=== PATIENT | male | born 1995 | race Caucasian/White ===

== ENCOUNTER 2017-06-22 18:35 | Emergency (ER) | payer OTHER ==
[2017-06-22] MEDS ORDERED: ACETAMINOPHEN 325 MG TABLET PO ONE (20:55)
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
[2017-06-22 22:08] VITALS: BP 130/86
== END 2017-06-22 22:07 | disposition home or self-care (01) ==
LOC: ER 18:35
DX: S40.021A Contusion of right upper arm, initial encounter (principal); S80.01XA Contusion of right knee, initial encounter; M89.8X2 Other specified disorders of bone, upper arm; M25.561 Pain in right knee; M25.521 Pain in right elbow; V49.50XA Passenger injured in collision with unspecified motor vehicles in traffic accident, initial encounter; F17.210 Nicotine dependence, cigarettes, uncomplicated; Z71.6 Tobacco abuse counseling; Z87.81 Personal history of (healed) traumatic fracture
CPT/HCPCS: 99284

== ENCOUNTER 2018-01-14 18:29 | Emergency (ER) | payer SELFPAY ==
--- NOTE | 2018-01-14 18:54 | ER Document Report ---
ED Skin Rash/Insect Bite/Abscs - General Chief Complaint: Abscess Stated Complaint: POSSIBLE ABSCESS Time Seen by Provider: 01/14/18 18:48 TRAVEL OUTSIDE OF THE [place] IN LAST 30 DAYS: No - Related Data Allergies/Adverse Reactions: No Known Allergies Allergy (Verified 01/14/18 18:38) Past Medical History - Social History Family History: Arthritis, CVA, Hyperlipidemia, Hypertension, Thyroid Disfunction. denies: CAD, COPD, DM, Malignancy Renal/ Medical History: Denies: Hx Peritoneal Dialysis Musculoskeltal Medical History: Reports Hx Musculoskeletal Trauma Traumatic Medical History: Reports: Hx Fractures - Right knee Physical Exam - Vital signs Vitals: Temp Pulse BP Pulse Ox 100.3 F 111 H 119/70 97 01/14/18 18:46 01/14/18 18:46 01/14/18 18:46 01/14/18 18:46 Course - Vital Signs Vital signs: Temp Pulse Resp BP Pulse Ox 100.3 F 111 H 119/70 97 01/14/18 18:46 01/14/18 18:46 01/14/18 18:46 01/14/18 18:46
--- NOTE | 2018-01-14 19:10 | ER Document Report ---
ED Medical Screen (RME) - General Chief Complaint: Abscess Stated Complaint: POSSIBLE ABSCESS Time Seen by Provider: 01/14/18 18:48 Mode of Arrival: Ambulatory Information source: Patient Notes: 22-year-old male presents to ED for pain in my tailbone. He states there was a cyst or pimple on the tailbone that popped today. "He has a very large pilonidal cyst. I have consulted Dr. Russ who recommended call the surgeon to have him assess the area. When I called Dr. Orantes he stated that he needs CBC and chemistry before he comes and sees the patient to please call him with the results. CBC chemistry blood cultures and saline lock have been ordered. I have greeted and performed a rapid initial assessment of this patient. A comprehensive ED assessment and evaluation of the patient, analysis of test results and completion of medical decision making process will be conducted by an additional ED providers. TRAVEL OUTSIDE OF THE [place] IN LAST 30 DAYS: No - Related Data Allergies/Adverse Reactions: No Known Allergies Allergy (Verified 01/14/18 18:38) Past Medical History Renal/ Medical History: Denies: Hx Peritoneal Dialysis Musculoskeltal Medical History: Reports Hx Musculoskeletal Trauma Traumatic Medical History: Reports: Hx Fractures - Right knee Physical Exam - Vital signs Vitals: Temp Pulse BP Pulse Ox 100.3 F 111 H 119/70 97 01/14/18 18:46 01/14/18 18:46 01/14/18 18:46 01/14/18 18:46 Course - Vital Signs Vital signs: Temp Pulse Resp BP Pulse Ox 100.3 F 111 H 119/70 97 01/14/18 18:46 01/14/18 18:46 01/14/18 18:46 01/14/18 18:46
[2018-01-14 19:24] LABS: ABSOLUTE BASOPHILS # (AUTO) 0.1 10^3/uL (0.0-0.2); ABSOLUTE EOSINOPHILS # (AUTO) 0.2 10^3/uL (0.0-0.6); ABSOLUTE LYMPHOCYTES (AUTO) 1.8 10^3/uL (0.5-4.7); ABSOLUTE MONOCYTES (AUTO) 1.3 10^3/uL (0.1-1.4); BASOPHILS % (AUTO) 0.9 % (0-2); EOSINOPHILS % (AUTO) 1.1 % (0-6); HEMATOCRIT 42.1 % (37.9-51.0); HEMOGLOBIN 14.6 g/dL (13.5-17.0); LYMPHOCYTES % (AUTO) 11.6 % (13-45); MEAN CORPUSCULAR HEMOGLOBIN 31.2 pg (27.0-33.4); MEAN CORPUSCULAR HGB CONC 34.7 g/dL (32.0-36.0); MEAN CORPUSCULAR VOLUME 90 fl (80-97); MONOCYTES % (AUTO) 8.6 % (3-13); PLATELET COUNT 306 10^3/uL (150-450); RED BLOOD COUNT 4.68 10^6/uL (4.35-5.55); RED CELL DISTRIBUTION WIDTH 12.8 % (11.5-14.0); SEGMENTED NEUTROPHILS % (AUTO) 77.8 % (42-78); TOTAL CELLS COUNTED % (AUTO) 100 %; WHITE BLOOD COUNT 15.5 10^3/uL (4.0-10.5)
[2018-01-14] MEDS ORDERED: CEFTRIAXONE 1 GM/D5W RTU 1 GM/50 ML RTUPB IV ONE (19:26)
--- NOTE | 2018-01-14 19:26 | ER Document Report ---
HPI - HPI Pain Level: 3 Notes: Patient is a 22-year-old male with no significant past medical history who presents to the ED complaining of an abscess in the area of his tailbone most notably over the last day, but he has had pain in that area over the last 3 days. Patient believes that it opened today as well. The pain does not radiate. He is still eating and drinking without any difficulties. He is urinating normally and having normal bowel movements. He has no other concerns or complaints at this time. Denies any drug allergies. Denies any headache, fever, URI, sore throat, chest pain, palpitations, syncope, cough, shortness of breath, wheeze, dyspnea, abdominal pain, nausea/vomiting/diarrhea, urinary retention, dysuria, hematuria, or rash. - ROS Systems Reviewed and Negative: Yes All other systems reviewed and negative - DERM Skin Color: Normal, [place] Past Medical History - General Information source: Patient - Social History Smoking Status: Current Every Day Smoker Frequency of alcohol use: None Drug Abuse: None Family History: Arthritis, CVA, Hyperlipidemia, Hypertension, Thyroid Disfunction. denies: CAD, COPD, DM, Malignancy Patient has suicidal ideation: No Patient has homicidal ideation: No Renal/ Medical History: Denies: Hx Peritoneal Dialysis Musculoskeltal Medical History: Reports Hx Musculoskeletal Trauma Traumatic Medical History: Reports: Hx Fractures - Right knee Vertical Provider Document - CONSTITUTIONAL Agree With Documented VS: Yes Notes: PHYSICAL EXAMINATION: GENERAL: Well-appearing, well-nourished and in no acute distress. LUNGS: Breath sounds clear to auscultation bilaterally and equal. No wheezes rales or rhonchi. HEART: Regular rate and rhythm without murmurs, rubs, gallops. Abd: soft, non-tender, nondistended. BS present. No CVA tenderness Musculoskeletal: FROM to passive/active. Strength 5+/5. Extremities: No cyanosis, clubbing, or edema b/l. Peripheral pulses 2+. Capillary refill less than 3 seconds. NEUROLOGICAL: Cranial nerves grossly intact. Normal speech, normal gait. Normal sensory, motor exams PSYCH: Normal mood, normal affect. SKIN: There is a notable erythemic area with fluctance to the coccyx area with tenderness and dried open area of purulence. No streaks. - INFECTION CONTROL TRAVEL OUTSIDE OF THE [place] IN LAST 30 DAYS: No Course - Re-evaluation Re-evalutation: 01/14/18 19:25 Dr. Russ was consulted by William LE in the RME note. William also notified Dr. Orantes, general surgery, who would like blood work performed and call back. Rocephin will be ordered. 01/14/18 20:24 Patient is an afebrile, well-hydrated, 22-year-old male who presents to the ED with a pilonidal abscess. Vitals are acceptable. PE is otherwise unremarkable. CBC showed an elevated white count. CMP unremarkable. Cultures are pending. Dr. Orantes already evaluated and performed the I&D in the emergency department. Wound dressing was placed by him and wound instructions reviewed with the patient. He would like us to prescribe Keflex 500 mg 3 times a day for 7 days as well as Percocet #15. Recheck with the surgeons office on Thursday. Return to the ED with any worsening/concerning symptoms otherwise as reviewed discharge. Patient is in agreement. - Vital Signs Vital signs: Temp Pulse Resp BP Pulse Ox 100.3 F 111 H 119/70 97 01/14/18 18:46 01/14/18 18:46 01/14/18 18:46 01/14/18 18:46 - Laboratory Result Diagrams: 01/14/18 19:04 01/14/18 19:04 Discharge - Discharge Clinical Impression: Pilonidal abscess Condition: Stable Disposition: HOME, SELF-CARE Instructions: Abscess ([facility]), Post Incision and Drainage, Cephalexin ([facility]), Oral Narcotic Medication ([facility]) Additional Instructions: Keep the skin clean Wash with soap and water Tylenol/ibuprofen if needed Wound instructions per the surgeon Take medication as directed Monitor for any worsening symptoms Recheck with your PCM in 3-5 days Follow-up with the surgeons office on Thursday as directed* Return to the ED with any worsening symptoms and/or development of fever, headache, chest pain, palpitations, syncope, shortness of breath, trouble breathing, abdominal pain, n/v/d, abscess, purulent discharge, red streaks, worsening swelling, or other worsening symptoms that are concerning to you. Prescriptions: Cephalexin Monohydrate [Keflex 500 mg Capsule] 500 mg PO TID #30 capsule Oxycodone HCl/Acetaminophen [Oxycodone-Acetaminophen 5-325] 1 each PO TID PRN # 15 tablet PRN Reason: Forms: Smoking Cessation Education Referrals: [facility] [Provider Group] - 01/18/18
[2018-01-14 19:38] LABS: ALANINE AMINOTRANSFERASE 122 U/L (21-72); ALBUMIN 4.1 g/dL (3.5-5.0); ALKALINE PHOSPHATASE 81 U/L (38-126); ANION GAP 13 (5-19); ASPARTATE AMINO TRANSFERASE 62 U/L (17-59); BILIRUBIN,DIRECT 0.5 mg/dL (0.0-0.4); BILIRUBIN,TOTAL 0.8 mg/dL (0.2-1.3); BLOOD UREA NITROGEN 10 mg/dL (7-20); CALCIUM 9.4 mg/dL (8.4-10.2); CARBON DIOXIDE 24 mmol/L (22-30); CHLORIDE 106 mmol/L (98-107); GLUCOSE 87 mg/dL (75-110); POTASSIUM 3.9 mmol/L (3.6-5.0); SODIUM 142.8 mmol/L (137-145); TOTAL PROTEIN 6.9 g/dL (6.3-8.2)
--- NOTE | 2018-01-14 20:40 | PDOC CONSULTATION ---
History of Present Illness Patient complains of: Mid buttocks pain History of Present Illness: HEVER MCCARTY is a 22 year old male presenting with a several day history of mid buttocks pain especially with sitting position. No fevers or chills. No drainage. No prior history of this sort of pain. Patient has had no long-term health problems. Social History Smoking Status: Current Every Day Smoker Family History Family History: Arthritis, CVA, Hyperlipidemia, Hypertension, Thyroid Disfunction. denies: CAD, COPD, DM, Malignancy Parental Family History Reviewed: No Children Family History Reviewed: No Sibling(s) Family History Reviewed.: No Medication/Allergy Home Medications: Cephalexin Monohydrate [Keflex 500 mg Capsule] 500 mg PO TID #30 capsule Oxycodone HCl/Acetaminophen [Oxycodone-Acetaminophen 5-325] 1 each PO TID PRN # 15 tablet 01/14/18 Allergies/Adverse Reactions: No Known Allergies Allergy (Verified 01/14/18 18:38) Physical Exam Vital Signs: Temp Pulse Resp BP Pulse Ox 100.3 F 111 H 119/70 97 01/14/18 18:46 01/14/18 18:46 01/14/18 18:46 01/14/18 18:46 Intake & Output 01/13/18 01/14/18 01/15/18 06:59 06:59 06:59 Weight 111.8 kg General appearance: PRESENT: no acute distress, cooperative Respiratory exam: PRESENT: clear to auscultation gina Cardiovascular exam: PRESENT: RRR Skin exam: PRESENT: other - At midline buttocks cephalad to the anus extending more to the left side there is a approximately 4 x 6 cm region of swelling with erythema and tenderness and fluctuance. Results Laboratory Results: 01/14/18 19:04 01/14/18 19:04 01/14/18 01/14/18 19:04 19:04 WBC 15.5 H RBC 4.68 Hgb 14.6 Hct 42.1 MCV 90 MCH 31.2 MCHC 34.7 RDW 12.8 Plt Count 306 Seg Neutrophils % 77.8 Lymphocytes % 11.6 L Monocytes % 8.6 Eosinophils % 1.1 Basophils % 0.9 Absolute Neutrophils 12.0 H Absolute Lymphocytes 1.8 Absolute Monocytes 1.3 Absolute Eosinophils 0.2 Absolute Basophils 0.1 Sodium 142.8 Potassium 3.9 Chloride 106 Carbon Dioxide 24 Anion Gap 13 BUN 10 Creatinine 0.70 Est GFR ( Amer) > 60 Est GFR (Non-Af Amer) > 60 Glucose 87 Calcium 9.4 Total Bilirubin 0.8 AST 62 H ALT 122 H Alkaline Phosphatase 81 Total Protein 6.9 Albumin 4.1 Assessment & Plan - Diagnosis (1) Pilonidal abscess Is this a current diagnosis for this admission?: Yes Plan: Plan incision and drainage of abscess. I will plan to make a incision at the most lateral aspect of the abscess to avoid midline incision and excise a circular portion of skin to allow drainage. I have explained to the patient the risk and benefits of the procedure including risk of recurrence, infection, bleeding, poor healing at the incision site. Patient understands and agrees to proceed. Once the pilonidal cyst abscess has resolved, patient would benefit from a pit picking as outpatient procedure in the clinic.
--- NOTE | 2018-01-14 20:48 | Operative Report ---
Operative Report DATE OF SURGERY: 01/14/18 PREOPERATIVE DIAGNOSIS: Pilonidal cyst abscess POSTOPERATIVE DIAGNOSIS: Pilonidal cyst abscess OPERATION: Pilonidal cyst abscess incision and drainage SURGEON: ARVAIND YO ANESTHESIA: Local TISSUE REMOVED OR ALTERED: Pus sent for Gram stain and culture COMPLICATIONS: None ESTIMATED BLOOD LOSS: Minimal INTRAOPERATIVE FINDINGS: At midline buttocks above the anus a 4 x 6 cm region of abscess cavity. Copious amount of pus within the cavity along with the debris and hair PROCEDURE: Informed consent was obtained. Procedure was done at the patient's bedside. Patient was left in a prone position. His midline buttocks was prepped and draped in usual sterile fashion. Local anesthetic was administered. At the most lateral left aspect of the abscess (avoiding the midline) a slightly less than 1 cm [place] of skin was excised using scalpel and electrocautery. Using this entrance point I was able to place a hemostat into an abscess cavity filled with copious amounts of foul-smelling pus. The pus was evacuated and the cavity was explored with a Nohemi clamp removing debris as well as small amount of hair. The cavity was irrigated with local anesthetic as well as saline. Hemostasis appeared to be good. Using a 4 x 4 piece of gauze a corner of the gauze was tucked into the abscess cavity as a light packing with most of the gauze hanging outside of the body for easy removal by the patient. Patient tolerated procedure well with no apparent complications. Wound care instructions were given to the patient; that is for him to get in the shower and remove the gauze packing tomorrow. Afterwards he is to just apply sanitary napkin to this area for drainage. He is to shower or do sitz baths at home at least once a day. He is to call for any problems. He will be discharged on Keflex and Percocet. Will have him follow-up at [facility] this coming Thursday.
[2018-01-14 21:05] VITALS: BP 102/74
== END 2018-01-14 21:05 | disposition home or self-care (01) ==
LOC: ER 18:29
PROC: 0H98XZZ Drainage of Buttock Skin, External Approach (ICD-10-PCS; principal; 2018-01-14)
DX: L05.01 Pilonidal cyst with abscess (principal); F17.200 Nicotine dependence, unspecified, uncomplicated
CPT/HCPCS: 99284; 96365; 36415; 87040; 87070; 87205; 85025; 87075; 87077; 80053; 10080; J0696

== ENCOUNTER 2019-10-10 04:46 | Emergency (ER) | payer SELFPAY ==
[2019-10-10] MEDS ORDERED: NORMAL SALINE 1000 ML 1,000 ML IV ONE (05:55)
[2019-10-10] MEDS ORDERED: KETOROLAC TROMETHAMINE INJ/PF 30 MG/1 ML SDV IV ONE (05:55)
--- NOTE | 2019-10-10 06:00 | ER Document Report ---
ED Medical Screen (RME) - General Chief Complaint: Back Injury Stated Complaint: FALL/BACK PAIN Mode of Arrival: Ambulatory Information source: Patient TRAVEL OUTSIDE OF THE [place] IN LAST 30 DAYS: No - HPI Notes: 10/10/19 05:56 Patient is a 23-year-old male with a history of spinal surgery at [facility] a few months ago, who slipped and fell and injured his back. He states he was going down a set of 4 steps. He was taking his dog out, his foot got tangled in the leash. He fell onto his shoulder and his back. He complains of back pain. He rates it a 5 out of 5. He states he still has some numbness overlying that area, but he denies any numbness or tingling in his extremities. He was able to get up and walk under his own power. He states he is not had anything for pain since 2 days after being discharged from the hospital. - Related Data Smoking: Cigarettes Frequency of alcohol use: None Drug Abuse: None Allergies/Adverse Reactions: acetaminophen [From Tylenol] Allergy (Unknown, Verified 10/10/19 05:56) iodine Allergy (Unknown, Verified 10/10/19 05:56) Home Medications: no current pain meds Past Medical History - General Information source: Patient Renal/ Medical History: Denies: Hx Peritoneal Dialysis Musculoskeltal Medical History: Reports Hx Musculoskeletal Trauma - Spinal "reconstruction" Traumatic Medical History: Reports: Hx Fractures - Right knee Physical Exam - Vital signs Vitals: Temp Pulse Resp BP Pulse Ox 98.1 F 128 H 18 132/83 H 96 10/10/19 04:54 10/10/19 04:54 10/10/19 04:54 10/10/19 04:54 10/10/19 04:54 - Notes Notes: Is a 22-year-old male who appears his stated age in no acute distress. Physical examination of the spine yields a well approximated healing midline surgical scar. No induration, erythema, signs of dehiscence. He is tender to the entire area. Course - Re-evaluation Re-evalutation: 10/10/19 05:59 Patient presented to the emergency department for evaluation. On arrival his heart was 128. Given this information I did order IV line, CBC, CMP. Urinalysis is ordered. I gave him IV fluids. He had a plain x-ray is ordered per protocol by nursing. He is administered Toradol 30 mg IV. I have greeted and performed a rapid initial assessment of this patient. A comprehensive ED assessment and evaluation of the patient, analysis of test results and completion of medical decision making process will be conducted by an additional ED providers. - Vital Signs Vital signs: Temp Pulse Resp BP Pulse Ox 98.1 F 128 H 18 132/83 H 96 10/10/19 04:54 10/10/19 04:54 10/10/19 04:54 10/10/19 04:54 10/10/19 04:54
[2019-10-10 06:08] LABS: ABSOLUTE BASOPHILS # (AUTO) 0.2 10^3/uL (0.0-0.2); ABSOLUTE EOSINOPHILS # (AUTO) 0.3 10^3/uL (0.0-0.6); ABSOLUTE LYMPHOCYTES (AUTO) 3.2 10^3/uL (0.5-4.7); ABSOLUTE MONOCYTES (AUTO) 0.9 10^3/uL (0.1-1.4); ABSOLUTE NEUT (AUTO) 6.3 10^3/uL (1.7-8.2); BASOPHILS % (AUTO) 1.6 % (0-2); EOSINOPHILS % (AUTO) 3.1 % (0-6); HEMATOCRIT 44.6 % (37.9-51.0); HEMOGLOBIN 15.8 g/dL (13.5-17.0); LYMPHOCYTES % (AUTO) 28.9 % (13-45); MEAN CORPUSCULAR HEMOGLOBIN 31.2 pg (27.0-33.4); MEAN CORPUSCULAR HGB CONC 35.5 g/dL (32.0-36.0); MEAN CORPUSCULAR VOLUME 88 fl (80-97); MONOCYTES % (AUTO) 8.3 % (3-13); RED BLOOD COUNT 5.08 10^6/uL (4.35-5.55); RED CELL DISTRIBUTION WIDTH 13.3 % (11.5-14.0); SEGMENTED NEUTROPHILS % (AUTO) 58.1 % (42-78); TOTAL CELLS COUNTED % (AUTO) 100 %; WHITE BLOOD COUNT 10.9 10^3/uL (4.0-10.5)
--- NOTE | 2019-10-10 06:15 | RADIOLOGY REPORT (SQ) ---
EXAM DESCRIPTION: XR LUMBAR SPINE ANTEROPOSTERIOR, LATERAL, AND OBLIQUES COMPLETED DATE/TME: 10/10/2019 05:18 CLINICAL HISTORY: 23 years Male, Fall/Pain COMPARISON: None. Technique: Five views. Findings: T11-L3 posterior hardware fusion. Mild anterior vertebral wedging at the T12 and L1 levels. Normal alignment and curvature. Extraspinal structures are grossly intact. IMPRESSION: T11-L3 posterior hardware fusion. Mild anterior vertebral wedging at the T12 and L1 levels. .
[2019-10-10 06:17] LABS: ALBUMIN 4.8 g/dL (3.5-5.0); ALKALINE PHOSPHATASE 127 U/L (38-126); ANION GAP 10 (5-19); ASPARTATE AMINO TRANSFERASE 36 U/L (17-59); BILIRUBIN,DIRECT 0.1 mg/dL (0.0-0.4); BILIRUBIN,TOTAL 0.4 mg/dL (0.2-1.3); BLOOD UREA NITROGEN 12 mg/dL (7-20); CALCIUM 9.8 mg/dL (8.4-10.2); CARBON DIOXIDE 29 mmol/L (22-30); CHLORIDE 99 mmol/L (98-107); GLUCOSE 84 mg/dL (75-110); POTASSIUM 4.4 mmol/L (3.6-5.0); TOTAL PROTEIN 8.1 g/dL (6.3-8.2)
--- NOTE | 2019-10-10 06:36 | ER Document Report ---
ED Fall - General Chief Complaint: Back Injury Stated Complaint: FALL/BACK PAIN Time Seen by Provider: 10/10/19 06:05 Mode of Arrival: Ambulatory Information source: Patient Notes: 23-year-old male presents to the emergency department history of a fall on 4 steps to his shoulder and back. History of recent back surgery. At the time of presentation to the emergency department patient was noted to be tachycardic and in pain. IV fluids and Toradol were given a plain film x-ray performed and labs. Presently the patient is resting quietly heart rate of 85 and blood pressure stable. TRAVEL OUTSIDE OF THE [place] IN LAST 30 DAYS: No - Related data Allergies/Adverse Reactions: acetaminophen [From Tylenol] Allergy (Unknown, Verified 10/10/19 05:56) iodine Allergy (Unknown, Verified 10/10/19 05:56) Home Medications: no current pain meds Past Medical History - General Information source: Patient - Social History Smoking Status: Current Every Day Smoker Frequency of alcohol use: None Drug Abuse: None Family History: Arthritis, CVA, Hyperlipidemia, Hypertension, Thyroid Disfunction. denies: CAD, COPD, DM, Malignancy Patient has suicidal ideation: No Patient has homicidal ideation: No Renal/ Medical History: Denies: Hx Peritoneal Dialysis Musculoskeletal Medical History: Reports Hx Musculoskeletal Trauma - Spinal "reconstruction" Traumatic Medical History: Reports: Hx Fractures - Right knee Review of Systems - Review of Systems Notes: Constitutional: Negative for fever. HENT: Negative for sore throat. Eyes: Negative for visual changes. Cardiovascular: Negative for chest pain. Respiratory: Negative for shortness of breath. Gastrointestinal: Negative for abdominal pain, vomiting or diarrhea. Genitourinary: Negative for dysuria. Musculoskeletal: + Back pain. Skin: Negative for rash. Neurological: Negative for headaches, weakness or numbness. 10 point ROS negative except as marked above and in HPI. Physical Exam - Vital signs Vitals: Temp Pulse Resp BP Pulse Ox 98.1 F 128 H 18 132/83 H 96 10/10/19 04:54 10/10/19 04:54 10/10/19 04:54 10/10/19 04:54 10/10/19 04:54 - Notes Notes: PHYSICAL EXAMINATION: Physical Exam: General: Well-nourished well-developed 23-year-old male in no acute distress HEENT: NC/AT, pupils equal round and reactive to light, MM moist,nares clear, oropharynx clear, airway patent Neck: supple, no adenopathy, no masses. Good range of motion Lungs: clear, no wheezing, no rales no rhonchi CVS: Regular rate and rhythm no murmur gallop or rub Abdomen: Soft, active, nontender, no masses, no hepatosplenomegaly Ext: No edema, clubbing or cyanosis. Neuro: Alert and responsive, moving all 4 extremities on command, cranial nerves intact, no focal findings Skin: Well-healed surgical scar lower back lumbar region. PSYCH: Normal mood, normal affect. Course - Re-evaluation Re-evalutation: 10/10/19 06:37 History of mechanical fall on steps, recent back surgery, severe back pain with tachycardia upon presentation, improved with fluids and Toradol. X-ray reveals hardware in place with no signs of fracture or disruption. Awaiting lab results, disposition discharge home if all is negative. 10/10/19 07:51 I was able to awaken the patient and explained to him that the lab work and x- rays were negative, patient set up stated that he has a ride coming to pick him up. He is being discharged from the emergency department to follow-up with his own provider as needed. - Vital Signs Vital signs: Temp Pulse Resp BP Pulse Ox 98.1 F 128 H 15 122/71 96 10/10/19 04:54 10/10/19 04:54 10/10/19 07:01 10/10/19 07:01 10/10/19 07:01 - Laboratory Result Diagrams: 10/10/19 05:41 10/10/19 05:41 Laboratory results interpreted by me: 10/10/19 10/10/19 05:41 05:41 WBC 10.9 H Alkaline Phosphatase 127 H 10/10/19 07:52 I have reviewed laboratory data and used this information for the treatment decisions regarding the patient. - Diagnostic Test Radiology reviewed: Image reviewed, Reports reviewed - X-ray lumbosacral spine: Good alignment, hardware in place, no acute fracture seen. Discharge - Discharge Clinical Impression: Low back pain Qualifiers: Chronicity: acute Back pain laterality: unspecified Sciatica presence: without sciatica Qualified Code(s): M54.5 - Low back pain Fall Qualifiers: Encounter type: initial encounter Qualified Code(s): W19.XXXA - Unspecified fall, initial encounter Condition: Good Disposition: HOME, SELF-CARE Instructions: Ice Packs ([facility]), Low Back Pain ([facility]) Additional Instructions: HOME CARE INSTRUCTIONS & INFORMATION: Thank you for choosing us for your medical needs. We hope you're satisfied with the care you received. After you leave, you must properly care for your problem and, at the same time, observe its progress. Any condition can change. Some illnesses can change rapidly over hours or days. If your condition worsens, return to the Emergency Department or see your physician promptly. ABOUT YOUR X-RAYS AND EKG'S: If you had an EKG or X-rays taken, they have been read by the Emergency Physician. The X-rays and EKG's will also be read by a Radiologist or [employer] within 24 hours. If discrepancies are noted, you will be notified by telephone. Please be certain the ED has a correct telephone number & address where you can be reached. Also, realize that some fractures or abnormalities do not show up on initial X-rays. If your symptoms continue, see your physician. ABOUT YOUR LABORATORY TEST: If you had laboratory tests, the results have been reviewed by the Emergency Physician. Some test results (for example cultures) may not be available for several days. You will be contacted if any test result shows you need additional treatment. Please be certain the ED has a correct telephone number and address where you can be reached. ABOUT YOUR MEDICATIONS: You will receive instructions on how to take your medicine on the prescription label you receive. Additional information may be provided by the Pharmacy. If you have questions afterwards, call the ED for clarification or further instructions. Some prescribed medications may cause drowsiness. Do not perform tasks such as driving a car or operating machinery without consulting your Pharmacist. If you feel you need a refill of pain medication, your condition will need re-evaluation. Please do not call for a refill of any medication. ABOUT YOUR SIGNATURE: Signature of this document acknowledges to followin. Understanding that you received emergency treatment and that you may be released before al medical problems are known or treated. Please be certain the ED has a correct phone number & address where you can be reached. 2. Acknowledgement that you will arrange for follow-up care as recommended. 3. Authorization for the Emergency Physician to provide information to your follow-up Physician in order to maximize your care. AT ANY TIME, IF YOUR SYMPTOMS CHANGE SIGNIFICANTLY OR WORSEN OR YOU DEVELOP NEW SYMPTOMS, RETURN TO THE EMERGENCY DEPARTMENT IMMEDIATELY FOR RE-EVALUATION. OUR GOAL IS TO PROVIDE EXCELLENT MEDICAL CARE! WE HOPE THAT WE HAVE MET YOUR EXPECTATIONS DURING YOUR EMERGENCY DEPARTMENT VISIT AND THAT YOU FEEL YOU HAVE RECEIVED EXCELLENT CARE!
[2019-10-10 06:44] LABS: PLATELET COUNT 351 10^3/uL (150-450)
[2019-10-10 07:29] VITALS: BP 122/71
== END 2019-10-10 07:58 | disposition home or self-care (01) ==
LOC: ER 04:46
DX: M54.5 Low back pain (principal); R00.0 Tachycardia, unspecified; W10.9XXA Fall (on) (from) unspecified stairs and steps, initial encounter; F17.210 Nicotine dependence, cigarettes, uncomplicated; Z98.890 Other specified postprocedural states; Z88.6 Allergy status to analgesic agent
CPT/HCPCS: 99283; 96374; 36415; 85025; 80053; 72110; J1885; J7030